=== PATIENT | female | born 1980 | race Caucasian/White ===

== ENCOUNTER 2016-11-18 19:47 | Emergency (ER) | payer OTHER ==
[2016-11-18 20:02] VITALS: TEMP 97.8; BMI 27.0
--- NOTE | 2016-11-18 20:04 | PDOC ---
Rapid Medical Evaluation Chief Complaint: Head/Neck problem Time Seen by Provider: 11/18/16 19:59 Medical Evaluation: Allergies Allergy/AdvReac Type Severity Reaction Status Date / Time No Known Allergies Allergy Verified 11/18/16 19:58 11/18/16 20:01 RME Note: I have performed a brief, in-person evaluation of this patient . This patient presents with CC:Left sided Headache x 4 days with arm left numbness Pertinent PE findings are: 163/106; equal leaf size picker strength I have ordered: labs, EKG The patient will proceed to ED for further evaluation.
--- NOTE | 2016-11-18 20:39 | PDOC ---
History of Present Illness - General History Source: Patient Exam Limitations: No Limitations - History of Present Illness Initial Comments: 11/18/16 20:48 Patient is a 36 year old female a significant past medical history of asthma who presents to the ED with headache since friday. Patient notes that she initially developed a headache on friday and progressively developed neck pain and numbness to the left arm. She notes that she took nothing for the headache. She denies any control or devices. She denies fever, chills, cp, SOB, nausea, vomiting, diarrhea, or constipation. Denies any recent travel or sick contact. Denies any smoking, alcohol use or drug use. <Emily Bourgeois - Last Filed: 11/18/16 20:56> - General History Source: Patient <Misael Mckinney - Last Filed: 11/18/16 22:24> - General Chief Complaint: CVA/TIA Stated Complaint: HEADACHE/LT AR NUMB/NECK PAIN Time Seen by Provider: 11/18/16 19:59 Past History <Emily Bourgeois - Last Filed: 11/18/16 20:56> - Past Medical History Other medical history: denies - Immunization History Immunization Up to Date: Yes - Psycho/Social/Smoking Cessation Hx Suicidal Ideation: No Smoking History: Never smoked Information on smoking cessation initiated: No Hx Alcohol Use: No Drug/Substance Use Hx: No Substance Use Type: None <Misael Mckinney - Last Filed: 11/18/16 22:24> - Past Medical History Allergies/Adverse Reactions: Allergies Allergy/AdvReac Type Severity Reaction Status Date / Time No Known Allergies Allergy Verified 11/18/16 19:58 Home Medications: Ambulatory Orders Amox-Tr/K Cl [Augmentin 875Mg Tablet] 1 tab PO BID #20 tablet 11/18/16 Review of Systems - Review of Systems Able to Perform ROS?: Yes Comments:: 11/18/16 20:49 CONSTITUTIONAL: Absent: fever, chills, diaphoresis, generalized weakness, malaise, loss of appetite HEENT: Absent: rhinorrhea, nasal congestion, throat pain, throat swelling, difficulty swallowing, mouth swelling, ear pain, eye pain, visual Changes CARDIOVASCULAR: Absent: chest pain, syncope, palpitations, irregular heart rate, lightheadedness , peripheral edema RESPIRATORY: Absent: cough, shortness of breath, dyspnea with exertion, orthopnea, wheezing, stridor, hemoptysis GASTROINTESTINAL: Absent: abdominal pain, abdominal distension, nausea, vomiting, diarrhea, constipation, melena, hematochezia GENITOURINARY: Absent: dysuria, frequency, urgency, hesitancy, hematuria, flank pain, genital pain MUSCULOSKELETAL: Present: neck pain, left arm numbness Absent: myalgia, arthralgia, joint swelling SKIN: Absent: rash, itching, pallor HEMATOLOGIC/IMMUNOLOGIC: Absent: easy bleeding, easy bruising, lymphadenopathy, frequent infections ENDOCRINE: Absent: unexplained weight gain, unexplained weight loss, heat intolerance, cold intolerance NEUROLOGIC: Present: headache Absent: focal weakness or paresthesias, dizziness, unsteady gait, seizure, mental status changes, bladder or bowel incontinence PSYCHIATRIC: Absent: anxiety, depression, suicidal or homicidal ideation, hallucinations. <Emily Bourgeois - Last Filed: 11/18/16 20:56> *Physical Exam - Vital Signs Last Vital Signs Temp Pulse Resp BP Pulse Ox 97.8 F 95 H 20 163/106 100 11/18/16 19:59 11/18/16 19:59 11/18/16 19:59 11/18/16 19:59 11/18/16 19:59 - Physical Exam Comments: 11/18/16 20:49 GENERAL: Well developed, well nourished. Awake and alert. In no acute distress. HEENT: Normocephalic, atraumatic. PERRLA, EOMI. No conjunctival pallor. Sclerae are non -icteric. Moist mucous membranes. Oropharynx is clear. NECK: Supple. Full ROM. No JVD. Carotid pulses 2+ and symmetric, without bruits. No thyromegaly. No lymphadenopathy. CARDIOVASCULAR: Regular rate and rhythm. No murmurs, rubs, or gallops. Distal pulses are 2+ and symmetric. PULMONARY: +bilateral wheezes, decreased breath sounds. No evidence of respiratory distress. Lungs clear to auscultation bilaterally. No rales or rhonchi. ABDOMINAL: Soft. Non-tender. Non-distended. No rebound or guarding. No organomegaly. Normoactive bowel sounds. MUSCULOSKELETAL Normal range of motion at all joints. No bony deformities or tenderness. No CVA tenderness. EXTREMITIES: No cyanosis. No clubbing. No edema. No calf tenderness. SKIN: Warm and dry. Normal capillary refill. No rashes. No jaundice. NEUROLOGICAL: +5/5 motor strength bilaterally. Alert, awake, appropriate. Cranial nerves 2-12 intact. No deficits to light touch and temperature in face, upper extremities and lower extremities. No motor deficits in the in face, upper extremities and lower extremities. Normoreflexic in the upper and lower extremities. Normal speech. Toes are downgoing bilaterally. PSYCHIATRIC: Cooperative. Good eye contact. Appropriate mood and affect. <Emily Bourgeois - Last Filed: 11/18/16 20:56> - Vital Signs Last Vital Signs Temp Pulse Resp BP Pulse Ox 97.8 F 95 H 20 163/106 100 11/18/16 19:59 11/18/16 19:59 11/18/16 19:59 11/18/16 19:59 11/18/16 19:59 <Misael Mckinney - Last Filed: 11/18/16 22:24> Heart Score/ECG Review #1 11/18/16 20:[address] Mckinney. Impression: Normal sinus rhythm anteroseptal infarct vent rate 92 bpm <Emily Bourgeois - Last Filed: 11/18/16 20:56> ED Treatment Course - LABORATORY CBC & Chemistry Diagram: 11/18/16 20:27 <Emily Bourgeois - Last Filed: 11/18/16 20:56> - LABORATORY CBC & Chemistry Diagram: 11/18/16 20:27 11/18/16 20:27 <Misael Mckinney - Last Filed: 11/18/16 22:24> Medical Decision Making - Medical Decision Making 11/18/16 22:18 Dr. Mckinney: The scribe's documentation has been prepared under my direction and personally reviewed by me in its entirery. I confirm that the note above accurately reflects all work, treatment, procedures, and medical decision making performed by me. 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 Pt will be discharge and follow up with neurology and neurosurgery for consultations. Rx Augmentin 875mg po for sinusitis <Misael Mckinney - Last Filed: 11/18/16 22:24> *DC/Admit/Observation/Transfer - Attestations Scribe Attestion: 11/18/16 20:50 Documentation prepared by ERIN Sidhu, acting as medical claims assistant for Misael Mckinney DO. <Emily Bourgeois - Last Filed: 11/18/16 20:56> - Discharge Dispostion Admit: No <Misael Mckinney - Last Filed: 11/18/16 22:24> Diagnosis at time of Disposition: Hemangioma of bone Sinusitis Qualifiers: Sinusitis location: other Chronicity: unspecified Qualified Code(s): J32.9 - Chronic sinusitis, unspecified - Discharge Dispostion Disposition: HOME Condition at time of disposition: Stable - Prescriptions Prescriptions: Amox-Tr/K Cl [Augmentin 875Mg Tablet] 1 tab PO BID #20 tablet - Referrals Referrals: King Delgado MD [Staff Physician] - Issa Vasques MD [Staff Physician] - - Patient Instructions Printed Discharge Instructions: DI for Sinusitis, Hemangioma Additional Instructions: Please follow up with your primary care doctor and the doctors you have been referred to here in the ER. Take medication as directed. Return if any problems
[2016-11-18] MEDS ORDERED: ACETAMINOPHEN 325 MG TABLET (FP) PO ONE (20:46)
[2016-11-18] MEDS ORDERED: ACETAMINOPHEN 325 MG TABLET (FP) ONE (20:53)
[2016-11-18 21:01] LABS: ALBUMIN 3.7 g/dl (3.4-5.0); ANION GAP 9 (8-16); CALCIUM 8.7 mg/dL (8.5-10.1); CO2 26 mmol/L (21-32); CREATININE 0.6 mg/dL (0.55-1.02); GLUCOSE,RANDOM 91 mg/dL (74-106); SGOT/AST 10 U/L (15-37); SGPT/ALT 16 U/L (12-78)
[2016-11-18 21:03] LABS: ALK PHOS 63 U/L (45-117); BILIRUBIN,TOTAL 0.3 mg/dL (0.2-1.0); TOT PROT 7.6 g/dl (6.4-8.2)
[2016-11-18 21:33] LABS: BASOPHIL 0.9 % (0-2.0); EOSINOPHIL 13.7 % (0-4.5); MCH 27.3 pg (25.7-33.7); MCHC 33.2 g/dl (32.0-36.0); MEAN CELL VOLUME 82.2 fl (80-96); NEUTROPHILS 43.7 % (42.8-82.8); PLATELET COUNT 279 K/MM3 (134-434); RDW 14.4 % (11.6-15.6); WHITE BLOOD COUNT 9.7 K/mm3 (4.0-10.0)
[2016-11-18] MEDS ORDERED: AMOX TR/POT CLAV 875MG/125MG TABLETS (FP) PO ONE (22:16)
[2016-11-18] MEDS ORDERED: AMOX TR/POT CLAV 875MG/125MG TABLETS (FP) ONE (22:22)
[2016-11-18 22:30] VITALS: BP 158/89; PULSE 88
--- NOTE | 2016-11-19 10:58 | EKG ---
Test Reason : Blood Pressure : / mmHG Vent. Rate : 092 BPM Atrial Rate : 092 BPM P-R Int : 190 ms QRS Dur : 078 ms QT Int : 346 ms P-R-T Axes : 029 020 031 degrees QTc Int : 427 ms NORMAL SINUS RHYTHM ANTEROSEPTAL INFARCT , AGE UNDETERMINED ABNORMAL ECG NO PREVIOUS ECGS AVAILABLE Confirmed by ANNE BERNARD, SHAVON ([id number]) on 11/19/2016 10:58:03 AM Referred By: Confirmed By:SHAVON RODRÍGUEZ MD
== END 2016-11-18 22:30 | disposition home or self-care (01) ==
LOC: JER 19:47
DX: J32.9 Chronic sinusitis, unspecified (principal); D18.09 Hemangioma of other sites
CPT/HCPCS: 36415; 70450-TC; 72125-TC; 80053; 84703; 85025; 93005; 93010; 99283-25

== ENCOUNTER 2018-07-22 20:30 | Inpatient (IN) | payer OTHER ==
[2018-07-22 22:01] LABS: BASO % 0.4 % (0-2.0); EOS % 2.4 % (0-4.5); HEMATOCRIT 35.2 % (32.4-45.2); HEMOGLOBIN 11.4 GM/dL (10.7-15.3); LYMPH % 14.1 % (8-40); MCH 26.1 pg (25.7-33.7); MCHC 32.5 g/dl (32.0-36.0); MEAN CELL VOLUME 80.5 fl (80-96); MEAN PLT VOLUME 9.2 fl (7.5-11.1); NEUT % 76.1 % (42.8-82.8); PLATELET COUNT 224 K/MM3 (134-434); RBC 4.38 M/mm3 (3.60-5.2); RDW 15.5 % (11.6-15.6); WHITE BLOOD COUNT 15.3 K/mm3 (4.0-10.0)
[2018-07-22 22:02] LABS: RETICULOCYTES 1.66 % (0.5-1.5)
[2018-07-22 22:17] LABS: INR 0.92 (0.83-1.09); PROTHROMBIN TIME (PATIENT) 10.8 SEC (9.7-13.0)
[2018-07-22 22:20] LABS: ACTIVATED PTT 20.7 SECONDS (25.2-36.5)
[2018-07-22 22:24] LABS: ANION GAP 13 MMOL/L (8-16); BLOOD UREA NITROGEN 10 mg/dL (7-18); CALCIUM 8.8 mg/dL (8.5-10.1); CHLORIDE 104 mmol/L (98-107); CO2 20 mmol/L (21-32); CREATININE 0.5 mg/dL (0.55-1.3); GLUCOSE,RANDOM 77 mg/dL (74-106); POTASSIUM 4.3 mmol/L (3.5-5.1); SODIUM 138 mmol/L (136-145); URIC ACID 3.4 mg/dL (2.6-7.2); URINE APPEARANCE CLEAR; URINE BILIRUBIN NEGATIVE (<2.0 mg/dL); URINE COLOR LTYELLOW; URINE GLUCOSE (UA) NEGATIVE (NEGATIVE); URINE KETONE 1+ (NEGATIVE); URINE LEUK ESTERASE 3+ (NEGATIVE); URINE NITRITE NEGATIVE (NEGATIVE); URINE PROTEIN NEGATIVE (NEGATIVE); URINE UROBILINOGEN NEGATIVE mg/dL (0.2-1.0)
[2018-07-22] MEDS ORDERED: BUTORPHANOL TARTRATE 1 MG/ML VIAL IVPB ONE (22:24)
[2018-07-22] MEDS ORDERED: PROMETHAZINE HCL 25 MG/1 ML VIAL IVPUSH ONE (22:24)
[2018-07-22 22:25] LABS: GAMMA GLUTAMYL TRANSPEPTIDASE 11 U/L (5-85); SGOT/AST 7 U/L (15-37); SGPT/ALT 12 U/L (13-61)
[2018-07-22 22:27] LABS: EPI CELLS RARE /HPF (FEW); URINE BACTERIA RARE /hpf (NONE SEEN); URINE HYALINE CAST 1 /lpf; URINE MUCUS FEW
[2018-07-22] MEDS: ELECTROLYTE-148 SOLN 1,000 ML IV SCH (22:30)
[2018-07-22 23:49] VITALS: BMI 34.4
[2018-07-23] MEDS ORDERED: OXYTOCIN 30 UNITS in 0.9% NS 30 UNIT/500 ML INFUS.BAG IVPB SCH (03:00)
--- NOTE | 2018-07-23 03:16 | HP ---
Past Medical History - Primary Care Physician PCP:: Arabella Pride - Admission Chief Complaint: here for elevated BP and labor induction History of Present Illness: 38 y/o female with SIUP at 38 weeks admitted overnight for elevated BPs in office and possible IOL. Upon admission pt was found to be erlin on her own. Pt was 3-4 cm dilated upon admission and BPs were in mild range. Pt had BERNARD earlier on 07/22/18 but denied BERNARD/RUQ pain or blurry vision upon admission. complicated by GDMA1 and AMA. Pt was 3cm dilated in office 07/22/18. History Source: Patient, Medical Record Limitations to Obtaining History: No Limitations - Past Medical History Cardiovascular: Yes: HTN (gestational HTN - pt denies prior HTN) Pulmonary: No: Asthma, COPD Gastrointestinal: No: Ascites, GERD Reproductive: No: PID ...: 4 ...Para: 3 ...Term: 3 ...: 0 ...Spon : 0 ...Induced : 0 ...Multiple Gestation: 0 ...LMP: 10/30/17 ... Weeks Gestation by Dates: 37.6 ...EDC by Dates: 08/06/18 ...EDC by Sono: 08/04/18 Heme/Onc: No: Anemia Infectious Disease: No: HIV, MRSA, STD's Psych: No: Anxiety, Bipolar, Depression - Past Surgical History Hx Myomectomy: No Hx Transabdominal Cerclage: No Additional Surgical History: abdominoplasty - Smoking History Smoking history: Never smoked Have you smoked in the past 12 months: No - Alcohol/Substance Use Hx Alcohol Use: No History of Substance Use: reports: None - Social History Usual Living Arrangement: Yes: With Spouse ADL: Independent History of Recent Travel: No Home Medications - Allergies Allergies/Adverse Reactions: Allergies Allergy/AdvReac Type Severity Reaction Status Date / Time No Known Allergies Allergy Verified 07/23/18 07:15 - Home Medications Home Medications: Ambulatory Orders Vit Calc,Iron,Folic [ Vitamins] 1 each PO DAILY 07/23/18 Review of Systems - Review of Systems Constitutional: reports: No Symptoms Eyes: reports: No Symptoms HENT: reports: No Symptoms Neck: reports: No Symptoms Cardiovascular: reports: No Symptoms Respiratory: reports: No Symptoms Gastrointestinal: reports: No Symptoms Genitourinary: reports: No Symptoms Breasts: reports: No Symptoms Reported Musculoskeletal: reports: No Symptoms Integumentary: reports: No Symptoms Neurological: reports: No Symptoms Endocrine: reports: No Symptoms Hematology/Lymphatic: reports: No Symptoms Psychiatric: reports: No Symptoms Physical Exam - Maternity Vital Signs: Vital Signs Temperature 98.6 F 07/23/18 02:00 Pulse Rate 93 H 07/23/18 03:00 Respiratory Rate 20 07/23/18 03:00 Blood Pressure 130/68 07/23/18 03:00 O2 Sat by Pulse Oximetry (%) Constitutional: Yes: Well Nourished, No Distress, Calm Eyes: Yes: Conjunctiva Clear, EOM Intact HENT: Yes: Atraumatic, Normocephalic Neck: Yes: Supple, Trachea Midline Cardiovascular: Yes: Regular Rate and Rhythm Lungs: Clear to auscultation Breast(s): Yes: WNL - Abdominal Exam/OB Fundal Height: 38 Number of Fetuses: Single Presentation: Vertex Contractions: Yes Regularity: Regular Intensity: Mild/Mod Monitor Mode: External Category: I Accelerations: Uniform Decelerations: None - Vaginal Exam/OB Dilatation (cm): 6cm Amniotic Membrane Status: Intact (exam per nursing staff overnight) Presentation: Vertex/Position Station: -2 - Physical Exam Psychiatric: Yes: Alert, Oriented - Labs Lab Results: CBC, BMP 07/22/18 21:40 07/22/18 21:40 Problem List - Problems (1) Gestational hypertension affecting fourth Code(s): O13.9 - GESTATIONAL HTN W/O SIGNIFICANT PROTEINURIA, UNSP TRIMESTER (2) Advanced maternal age (AMA) in Code(s): MSS5033 - (3) Gestational diabetes mellitus (GDM) affecting fourth Code(s): O24.419 - GESTATIONAL DIABETES MELLITUS IN , UNSP CONTROL Assessment/Plan 38 y/o with SIUP at 38 weeks, in early labor, gHTN and A1GDM FHTS cat 1 expectant management for now BPs in mild range, pt asymtpomatic, continue to monitor, if has symptoms or if BPs become in severe range will plan for magnesium and antihypertensives
[2018-07-23] MEDS ORDERED: BUTORPHANOL TARTRATE 1 MG/ML VIAL ONE ×2 (03:19)
[2018-07-23] MEDS ORDERED: PROMETHAZINE HCL 25 MG/1 ML VIAL ONE (03:20)
[2018-07-23] MEDS ORDERED: FENTANYL/BUPIVACAINE/NS/PF - PCEA - 50 ML DISP.SYRIN EP ONE (08:52)
--- NOTE | 2018-07-23 08:57 | PN ---
Ante-Partal Exam - Subjective Subjective: Pt comfortable, not feeling contractions. Contractions now sporadic/ irregular. Vital Signs: Vital Signs Temperature 98.4 F 07/23/18 06:00 Pulse Rate 81 07/23/18 08:00 Respiratory Rate 20 07/23/18 08:00 Blood Pressure 132/78 07/23/18 08:00 O2 Sat by Pulse Oximetry (%) Bleeding: No Headache: No Visual changes: No Right upper quadrant pain: No Pain (scale 1-10): 0 - Contractions Contractions: Yes Regularity: Irregular Intensity: Unaware Monitor Mode: External - Exam during Labor Heart Rate: 145 Category: I Monitor Accelerations: Present Monitor Decelerations: None Exam: Vaginal Dilatation (cm): 5 Effacement (%): 50 Amniotic Membrane Status: Ruptured (AROM for clear fluid on this exam) Amniotic Fluid: Clear Station: -3 - Assessment/Plan Assessment/Plan: 38 y/o with GHTN, GDMA1 and in early labor, now arrested, for augmentation FHTS cat 1 will start pitocin pt still asymptomatic from HTN standpoint, if begins to have symptoms or BPs in severe range will start magnesium GBS negative anticipate
[2018-07-23] MEDS ORDERED: OXYTOCIN 30 UNITS in 0.9% NS 30 UNIT/500 ML INFUS.BAG IVPB ONE (09:00)
[2018-07-23] MEDS: ELECTROLYTE-148 SOLN 1,000 ML IV SCH (09:05)
[2018-07-23] MEDS ORDERED: NALOXONE HCL 0.4 MG/ML VIAL IVPUSH PRN (10:31)
[2018-07-23] MEDS ORDERED: FENTANYL/BUPIVACAINE/NS/PF - PCEA - 50 ML DISP.SYRIN EP SCH (10:45)
[2018-07-23] MEDS ORDERED: OXYTOCIN 20 UNITS in 0.9% NS 20 UNIT/1,000 ML INFUS.BAG IV ONE (12:06)
[2018-07-23] MEDS ORDERED: BENZOCAINE 20% 57 GM BOTTLE TP PRN (12:32)
[2018-07-23] MEDS ORDERED: BENZOCAINE 28 GM HEMORRHOIDAL OINTMENT TP PRN (12:32)
[2018-07-23] MEDS ORDERED: WITCH HAZEL 50% (TUCKS) 40 PAD/JAR PAD TP PRN (12:32)
[2018-07-23] MEDS ORDERED: METHYLERGONOVINE MALEATE 0.2 MG/1 ML AMP IM PRN (12:32)
[2018-07-23] MEDS ORDERED: BISACODYL 10 MG SUPP.RECT RC PRN (12:32)
[2018-07-23] MEDS ORDERED: TUBERCULIN PPD 5 TU/0.1ML SYRINGE (IN PATIENT USE ONLY) ID ONE (12:33)
[2018-07-23] MEDS ORDERED: OXYTOCIN 20 UNITS in 0.9% NS 20 UNIT/1,000 ML INFUS.BAG IV SCH (12:45)
--- NOTE | 2018-07-23 14:35 | PN ---
Delivery - Delivery Vaginal Delivery: No Problems Type of Anesthesia: Epidural Episiotomy/Laceration: Vaginal Extension/lac, 2nd degree EBL (cc): 300 Delivery, Single - Stages of Labor Date 1st Stage Initiatied: 07/22/18 Time 1st Stage Initiated: 20:00 Date 2nd Stage Initiated: 07/23/18 Time 2nd Stage Initiated: 11:50 Date of Delivery: 07/23/18 Time of Delivery: 12:10 Time Placenta Delivered: 12:17 Placenta: Yes: Spontaneous - Condition of Infant Kitchen Lead/Inside Account Executive Present: No Infant Gender: Female Weight: 7 lb 13 oz Position: Left, OA Total Hours ROM (Hrs/Mins): 3hrs/27mins - 1 Minute Total Score: 9 5 Minutes Total Score: 9 - [place] Feeding Plan Initial Plan: Elected not to breastfeed exclusively throughout hospitalization Remarks - Remarks Remarks: Uncomplicated of baby girl from ANGELA Position anterior and posterior shoulder delivered with ease along with remainder of cord clamped and cut mouth and nose bulb suctioned placenta delivered with 3VC and in tact 2nd degree repaired with 2-0 vicryl sponge and needle count correct mom and baby stable
[2018-07-23] MEDS: FERROUS SO4 325 MG TABLET (FP) PO SCH (17:04)
[2018-07-23] MEDS: ACETAMINOPHEN 325 MG TABLET (FP) PO PRN (17:04)
[2018-07-23] MEDS: IBUPROFEN 600 MG TABLET (FP) PO PRN (17:04)
[2018-07-24] MEDS: IBUPROFEN 600 MG TABLET (FP) PO PRN (04:32)
[2018-07-24] MEDS: ACETAMINOPHEN 325 MG TABLET (FP) PO PRN (04:33)
[2018-07-24] MEDS ORDERED: TUBERCULIN PPD 5 TU/0.1ML SYRINGE (IN PATIENT USE ONLY) ID ONE (06:30)
[2018-07-24 07:51] LABS: BASO % 0.7 % (0-2.0); EOS % 2.7 % (0-4.5); LYMPH % 15.1 % (8-40); MCH 25.5 pg (25.7-33.7); MEAN CELL VOLUME 79.7 fl (80-96); MEAN PLT VOLUME 9.2 fl (7.5-11.1); MONO % 7.7 % (3.8-10.2); NEUT % 73.8 % (42.8-82.8); PLATELET COUNT 198 K/MM3 (134-434); RBC 3.51 M/mm3 (3.60-5.2); RDW 15.9 % (11.6-15.6); WHITE BLOOD COUNT 15.8 K/mm3 (4.0-10.0)
[2018-07-24] MEDS: FERROUS SO4 325 MG TABLET (FP) PO SCH ×3 (10:13→18:04)
[2018-07-24] MEDS: PRENATAL VITAMINS W/ FOLIC ACID TABLET (FP) PO SCH (10:13)
[2018-07-24] MEDS ORDERED: DIPHTH,PERTUSS(ACELL),TET 0.5 ML DISP.SYRIN IM ONE (14:00)
[2018-07-24] MEDS ORDERED: PNEUMOC 13-VAL CONJ-DIP CRM/PF 0.5 ML DISP.SYRIN IM ONE (14:00)
[2018-07-24] MEDS ORDERED: PNEUMOCOCCAL 23 VACCINE 0.5 ML VIAL IM ONE (14:00)
[2018-07-24] MEDS ORDERED: SENNOSIDES/DOCUSATE COMBO (SENNA PLUS) TABLET (UD) PO PRN (22:00)
[2018-07-24 22:16] VITALS: TEMP 98.1
[2018-07-25] MEDS: IBUPROFEN 600 MG TABLET (FP) PO PRN (08:21)
[2018-07-25] MEDS: ACETAMINOPHEN 325 MG TABLET (FP) PO PRN (08:22)
[2018-07-25] MEDS: FERROUS SO4 325 MG TABLET (FP) PO SCH ×2 (08:23→12:00)
--- NOTE | 2018-07-25 09:11 | DS ---
Physical Exam-VIDEO OPERATOR Vital Signs: Vital Signs Temperature 98.1 F 07/24/18 22:00 Pulse Rate 94 H 07/24/18 22:00 Respiratory Rate 20 07/24/18 22:00 Blood Pressure 128/73 07/24/18 22:00 O2 Sat by Pulse Oximetry (%) 98 07/23/18 12:30 Constitutional: Yes: Well Nourished, No Distress, Calm Eyes: Yes: Conjunctiva Clear, EOM Intact HENT: Yes: Atraumatic, Normocephalic Neck: Yes: Trachea Midline Cardiovascular: Yes: Regular Rate and Rhythm Respiratory: Yes: Regular Gastrointestinal: Yes: Normal Bowel Sounds Wound/Incision: Yes: Clean/Dry, Well Approximated Neurological: Yes: Alert, Oriented Psychiatric: Yes: Alert, Oriented Labs: CBC, BMP 07/24/18 07:30 07/22/18 21:40 Delivery - Delivery Vaginal Delivery: No Problems Type of Anesthesia: Epidural Episiotomy/Laceration: Vaginal Extension/lac, 2nd degree EBL (cc): 300 Delivery, Single - Stages of Labor Date 1st Stage Initiatied: 07/22/18 Time 1st Stage Initiated: 20:00 Date 2nd Stage Initiated: 07/23/18 Time 2nd Stage Initiated: 11:50 Date of Delivery: 07/23/18 Time of Delivery: 12:10 Time Placenta Delivered: 12:17 Placenta: Yes: Spontaneous - Condition of Professor Of Political Science/Tunnel Kiln Operator Present: No Gender: Female Weight: 7 lb 13 oz Position: Left, OA Total Hours ROM (Hrs/Mins): 3hrs/27mins - 1 Minute Total Score: 9 5 Minutes Total Score: 9 - [place] Feeding Plan Initial Plan: Elected not to breastfeed exclusively throughout hospitalization Discharge Summary Reason For Visit: INDUCTION OF LABOR Current Active Problems Advanced maternal age (AMA) in (Acute) Gestational diabetes mellitus (GDM) affecting fourth (Acute) Gestational hypertension affecting fourth (Acute) Hospital Course: Pt admitted in labor overnight 07/22 and underwent normal on 07/23. Had gestational HTN, BPs normal after delivery, pt asymptomatic. Stable and discharged home on post day 2. Condition: Good - Instructions Diet, Activity, Other Instructions: Physical activity Resume your normal everyday activity as tolerated no heavy lifting or exercise until seen by your surgeon. You may walk unlimited meño of and climb stairs. You may resume driving the car when you feel safe and comfortable behind the wheel. No sexual activity as instructed. Wound care If you have a bandage, leave it on, and keep dry for 48-72 hours. After that time discard the outer bandage. If they are tapes on the skin under the out of bandage leave them in place. They will peel off in the next 7 to 10 days. Do Not Peel them off. You may shower the day after surgery. If there are tapes present on the skin, you may shower over them. Diet There are no dietary restrictions. Eat healthy, high-fiber foods. Drink 6 to 8 glasses of liquid each day. This will assist in keeping your bowels are regular. Pain management You may take Tylenol or acetaminophen or Ibuprofen (for example, Motrin, Advil etc.) from my pain prescription medication is ordered should be taken as prescribed for moderate to severe pain. Call MD for any of the following: Severe pain not relieved by medication Fever of 101 or higher Excessive bleeding or drainage on dressing Inability to urinate Referrals: Arabella Pride DO [Staff Physician] - Disposition: HOME - Home Medications Comprehensive Discharge Medication List: Ambulatory Orders Vit Calc,Iron,Folic [ Vitamins] 1 each PO DAILY 07/23/18 Ibuprofen [Motrin -] 600 mg PO QID PRN #28 tablet 07/25/18
[2018-07-25 09:21] VITALS: BP 125/83; PULSE 106
[2018-07-25] MEDS: PRENATAL VITAMINS W/ FOLIC ACID TABLET (FP) PO SCH (10:10)
== END 2018-07-25 13:40 | disposition home or self-care (01) | DRG 560 ==
LOC: JLDR 20:30 → J3W 07-23 14:31
PROVIDERS: ADMIT Obstetrics & Gynecology; ATTEND Obstetrics & Gynecology
PROC: 10E0XZZ Delivery of Products of Conception, External Approach (ICD-10-PCS; principal; 2018-07-23)
PROC: 0KQM0ZZ Repair Perineum Muscle, Open Approach (ICD-10-PCS; 2018-07-23)
DX: O13.3 Gestational [pregnancy-induced] hypertension without significant proteinuria, third trimester (principal); O24.410 Gestational diabetes mellitus in pregnancy, diet controlled; O70.1 Second degree perineal laceration during delivery; Z3A.38 38 weeks gestation of pregnancy; Z37.0 Single live birth
CPT/HCPCS: 36415; 59409; 80048; 81003; 81015; 82977; 83010; 84450; 84460; 84550; 85025; 85032; 85044; 85610; 85730; 86593; 86850; 86900; 86901; 87389; 90686; 90715; 90732; G0008; G0009

== ENCOUNTER 2019-02-17 05:07 | Day surgery (SDC) | payer OTHER ==
[2019-02-16 19:30] VITALS: BMI 37.9
[2019-02-17] MEDS ORDERED: fentaNYL CITRATE 250 MCG/5 ML VIAL ONE (08:23)
[2019-02-17] MEDS ORDERED: DEXAMETHASONE SOD PHOSPHATE 4 MG/1 ML VIAL ONE (08:23)
[2019-02-17] MEDS ORDERED: PROPOFOL 20 ML ONE (08:23)
[2019-02-17] MEDS ORDERED: LIDOCAINE HCL/PF 2% SDV 5ML VIAL ONE (08:23)
[2019-02-17] MEDS ORDERED: ROCURONIUM BROMIDE 50 MG/5 ML VIAL ONE (08:23)
[2019-02-17] MEDS ORDERED: MIDAZOLAM HCL 2 MG/2 ML SINGLE DOSE VIAL ONE (08:23)
[2019-02-17] MEDS ORDERED: IBUPROFEN 800 MG/8 ML IJ IVPB PRN (08:52)
[2019-02-17] MEDS ORDERED: ACETAMINOPHEN 325 MG TABLET (FP) PO PRN (08:52)
--- NOTE | 2019-02-17 08:52 | HP ---
History & Physical Update - History History: No Change - Physical Physical: No Change - Assessment Assessment: No Change - Plan Plan: No Change (Agree with H&P from 02/15/19 - desires sterilization, for laparoscopic b/l salpingectomy)
[2019-02-17] MEDS ORDERED: LACTATED RINGERS SOLUTION 1,000 ML IV SCH (09:00)
[2019-02-17] MEDS ORDERED: ceFAZolin SODIUM 1 GM VIAL ONE (10:05)
[2019-02-17] MEDS ORDERED: ceFAZolin 2 GRAM PREMIX BAG IVPB ONE (10:07)
[2019-02-17] MEDS ORDERED: GLYCOPYRROLATE 0.2 MG/1 ML VIAL ONE (10:31)
[2019-02-17] MEDS ORDERED: NEOSTIGMINE METHYLSULFATE 0.5 MG/ML - 10 ML MDV ONE (10:31)
[2019-02-17] MEDS ORDERED: ACETAMINOPHEN INJECTION 100 ML IVPB ONE (10:53)
[2019-02-17] MEDS ORDERED: oxyCODONE HCL 5 MG TABLET PO PRN (10:56)
[2019-02-17] MEDS ORDERED: ONDANSETRON 4 MG/2 ML VIAL IVPUSH PRN (10:56)
[2019-02-17] MEDS ORDERED: ACETAMINOPHEN 1000 MG/100 ML VIAL (NON FORMULARY) IVPB ONE (10:57)
--- NOTE | 2019-02-17 11:00 | OP ---
Operative Note - Note: Operative Date: 02/17/19 Pre-Operative Diagnosis: multiparity, desires sterilization Operation: laparoscopic bilateral salpingectomy Findings: normal uterus normal bilateral fallopian tubes and ovaries Post-Operative Diagnosis: Same as Pre-op Surgeon: Arabella Pride Master Esthetician: Gurmeet Reese Anesthesiologist/TEMPERING KILN TENDER: Buck Marcus Anesthesia: General Specimens Removed: bilateral fallopian tubes Estimated Blood Loss (mls): 1 Operative Report Dictated: Yes
--- NOTE | 2019-02-17 12:06 | SURG ---
Surgery Bellhop Service Captain Note Bellhop Service Captain: Gurmeet Reese PA-C Date of Service: 02/17/19 Diagnosis: multiparity, desires sterilization Procedure: laparoscopic bilateral salpingectomy I was present for the entirety of the operative procedure. For further detail, please refer to operative report. Visit type - Case Type Case Type: Scheduled - Emergency Emergency Visit: No - New patient This patient is new to me today: Yes Date on this admission: 02/17/19 - Critical Care Critical Care patient: No
[2019-02-17] MEDS ORDERED: oxyCODONE HCL 5 MG TABLET ONE (12:23)
[2019-02-17 13:26] VITALS: TEMP 97.8
[2019-02-17 14:46] VITALS: BP 117/78; PULSE 68
--- NOTE | 2019-02-19 00:32 | OP ---
DATE OF OPERATION: 02/17/2019 PREOPERATIVE DIAGNOSIS: Multiparity and desires permanent sterilization. POSTOPERATIVE DIAGNOSIS: Multiparity and desires permanent sterilization. PROCEDURE: Laparoscopic bilateral salpingectomy. SURGEON: Arabella Pride MD FINAL APPLICATION REVIEWER: BRADLEY Miller ANESTHESIA: General, by Buck Marcus, REF-CRN ESTIMATED BLOOD LOSS: 1 mL. COMPLICATIONS: None. SPECIMENS REMOVED: Bilateral fallopian tubes. DISPOSITION: Stable to PACU. COUNTS: Sponge, needle, and instrument count correct. BRIEF HISTORY AND PROCEDURE: Patient is a 38-year-old, 4, para 4, female, who has been seen in the office in consultation for contraception, and she expressed desire for permanent sterilization. She was consented on her options, and she signed the consent form for a laparoscopic bilateral salpingectomy. The consents were reconfirmed upon admission on February 17, 2019. She was taken back to the operating room, given general anesthesia, and placed the dorsal lithotomy position. A Pérez catheter was placed under sterile conditions. She was prepped and draped in the usual sterile fashion and a hard timeout was performed. A 5-mm skin incision was created in the lower aspect of the umbilicus. A Veress needle was placed intraabdominally and the abdomen was insufflated with CO2 gas. A trocar was then inserted intraabdominally and the camera was placed. After confirmation of intraperitoneal placement, 2 bilateral 5-mm lower quadrant ports were placed under direct visualization. At this point, the left fallopian tube was identified, traced to its fimbriated end, dissected off its attachment to the ovary, mesosalpinx, and uterus, using LigaSure device. It was removed in its entirety from the left lower quadrant trocar under direct visualization. The same was repeated with the right fallopian tube until both fallopian tubes were completely detached and removed from the abdominal cavity. Inspection of the remainder of the abdomen revealed no other intraabdominal pathology. Bilateral surgical sites were noted to be hemostatic. Bilateral ovaries were noted to be normal. No pathology noted on the uterus. At this point, the abdomen was desufflated, the camera was removed, trocars were removed. The incisions were reapproximated using 4-0 Biosyn and skin glue. The patient was awoken from anesthesia. The Pérez catheter was removed. She was recovering in stable condition in the PACU at the time of this dictation. ARABELLA PRIDE DO /[id number]
--- NOTE | 2019-02-19 11:41 | PATH ---
Surgical Pathology Report Patient Name: OMAR FLORES Med. Rec. #: [id number] /Age/Gender: 1980 (Age: 38) / F Account: [id number] Location: AMBULATORY SURG Taken: 02/17/2019 Received: 02/17/2019 Reported: 02/19/2019 Physicians: Arabella Pride M.D. Specimen(s) Received BILATERAL FALLOPIAN TUBES Clinical History Multiparity-desires sterilization Final Diagnosis FALLOPIAN TUBES, BILATERAL, LAPAROSCOPIC SALPINGECTOMY: FALLOPIAN TUBE WITH PARATUBAL CYST (INCLUDING FULL LUMINAL PORTION AND FIMBRIATED END). UNREMARKABLE FALLOPIAN TUBE (INCLUDING FULL LUMINAL PORTION AND FIMBRIATED END). Electronically Signed Natasha Lee M.D. Gross Description Received in formalin labeled "bilateral fallopian tubes," are 2 undesignated, fimbriated fallopian tubes measuring 3.2 and 6.0 cm in length. The longer tube displays a 0.8 cm in greatest dimension paratubal cyst attached to the fimbria. The outer surfaces are stearns-pink and smooth. Sectioning reveals unremarkable lumen. Broacher sections are submitted in 4 cassettes as follows: 1-longer fallopian tube fimbria with paratubal cyst; 2-cross sections of longer fallopian tube; 3-shorter fallopian tube fimbria; 4-cross sections of shorter fallopian tube. /02/17/2019 [facility]02/17/2019
== END 2019-02-17 14:45 | disposition home or self-care (01) ==
LOC: JASUSAT 05:07
PROVIDERS: ATTEND Obstetrics & Gynecology
PROC: 0U574ZZ Destruction of Bilateral Fallopian Tubes, Percutaneous Endoscopic Approach (ICD-10-PCS; principal; 2019-02-17 09:00)
DX: Z30.2 Encounter for sterilization (principal)
CPT/HCPCS: 36415; 84703; 88302-TC; 94760; J0131

== ENCOUNTER 2019-06-17 21:52 | Emergency (ER) | payer OTHER ==
[2019-06-17 21:57] VITALS: BP 148/87; PULSE 91; TEMP 98.2; BMI 32.5
[2019-06-17 23:08] LABS: EPI CELLS 0.2 /HPF (0-5/HPF); HYALINE CASTS 1 /lpf (0-8); PH,URINE 8.5 (5.0-8.0); URINE APPEARANCE TURBID; URINE BACTERIA 5.3 /hpf (NEGATIVE); URINE BILIRUBIN NEGATIVE (NEGATIVE); URINE COLOR YELLOW; URINE GLUCOSE (UA) NEGATIVE (NEGATIVE); URINE KETONE NEGATIVE (NEGATIVE); URINE LEUK ESTERASE NEGATIVE (NEGATIVE); URINE NITRITE NEGATIVE (NEGATIVE); URINE PROTEIN NEGATIVE (NEGATIVE); URINE RBC 5 /hpf (0-4); URINE UROBILINOGEN 0.2 mg/dL (0.2-1.0); URINE WBC 1 /hpf (0-5)
--- NOTE | 2019-06-17 23:22 | PDOC ---
History of Present Illness - General Chief Complaint: Back Pain Stated Complaint: BACK PAIN Time Seen by Provider: 06/17/19 22:46 History Source: Patient Exam Limitations: No Limitations Past History - Past Medical History Allergies/Adverse Reactions: Allergies Allergy/AdvReac Type Severity Reaction Status Date / Time No Known Allergies Allergy Verified 02/17/19 08:32 Home Medications: Ambulatory Orders Oxycodone HCl/Acetaminophen [Percocet 5-325 mg Tablet -] 1 tab PO Q6H #15 tablet MDD 4 02/17/19 Anemia: Yes Asthma: Yes (last attack 5 mths ago) Cancer: No Cardiac Disorders: No CVA: No COPD: No CHF: No Dementia: No Diabetes: No GI Disorders: No Disorders: No HTN: Yes ( induced) Hypercholesterolemia: No Liver Disease: No Seizures: No Thyroid Disease: No - Surgical History Abdominal Surgery: No Appendectomy: No Cardiac Surgery: No Cholecystectomy: No Lung Surgery: No Neurologic Surgery: No Orthopedic Surgery: No - Immunization History Immunization Up to Date: Yes - Psycho Social/Smoking Cessation Hx Smoking History: Never smoked Have you smoked in the past 12 months: No Hx Alcohol Use: No Drug/Substance Use Hx: No Substance Use Type: None Hx Substance Use Treatment: No *Physical Exam - Vital Signs Last Vital Signs Temp Pulse Resp BP Pulse Ox 98.2 F 91 H 19 148/87 100 06/17/19 21:54 06/17/19 21:54 06/17/19 21:54 06/17/19 21:54 06/17/19 21:54 - Physical Exam General Appearance: No: Apparent Distress Respiratory/Chest: positive: Lungs Clear, Normal Breath Sounds. negative: Respiratory Distress Cardiovascular: positive: Regular Rhythm, Regular Rate, S1, S2. negative: Murmur Female Pelvic Exam: positive: normal external exam. negative: CMT, adnexal tenderness Gastrointestinal/Abdominal: positive: Normal Bowel Sounds, Soft. negative: Tender, Distended, Guarding, Rebound Musculoskeletal: negative: CVA Tenderness Neurologic: positive: Alert, Normal Mood/Affect ED Treatment Course - ADDITIONAL ORDERS Additional order review: Laboratory Results 06/17/19 06/17/19 21:45 21:45 Urine Color Yellow Urine Appearance Turbid Urine pH 8.5 H D Ur Specific [place] 1.019 Urine Protein Negative Urine Glucose (UA) Negative Urine Ketones Negative Urine Blood 1+ H Urine Nitrite Negative Urine Bilirubin Negative Urine Urobilinogen 0.2 Ur Leukocyte Esterase Negative Urine WBC (Auto) 1 Urine RBC (Auto) 5 Urine Casts (Auto) 1 U Epithel Cells (Auto) 0.2 Urine Bacteria (Auto) 5.3 Urine HCG, Qual Negative Medical Decision Making - Medical Decision Making 38 y/o F hx of asthma, B/L salpingectomy 02/17/19, tummy tuck 11 years ago presents with left lower back and LLQ abd pain x 4 days. Denies fever, chills, sob, cp, n/v/d, urinary complaints. Is eating and drinking normally. Has taken Motrin which helps with pain. Patient is currently on menstrual cycle. Possible ovarian cyst; not suspicious for diverticulitis, appendicitis, kidney stones, ovarian torsion, tubo-ovarian abscess, PID UA reviewed and unremarkable (blood likely as patient currently on menstrual cycle) Patient sent for TVUS 06/17/19 23:23 TVUS results: The uterus and endometrial stripe appear normal. *1.6 cm complex right ovarian cyst, usually a hemorrhagic follicle. Left ovary appears normal. Duplex Ultrasound: Appropriate arterial and/or venous flow are noted in both ovaries, making torsion unlikely at this time. No significant free pelvic fluid. Patient appears comfortable Advised f/u with her OTOLARYNGOLOGIST, Dr. Bigg mariee for dc 06/18/19 01:25 Discharge - Discharge Information Problems reviewed: Yes Clinical Impression/Diagnosis: LLQ abdominal pain Condition: Stable Disposition: HOME - Admission No - Additional Discharge Information Prescription Drug Monitoring Program (I-STOP) results: I-STOP not reviewed - Follow up/Referral Referrals: Jesika Roe MD [Primary Care Provider] - Arabella Pride DO [Staff Physician] - 2 Days - Patient Discharge Instructions Patient Printed Discharge Instructions: DI for Ovarian Cyst Additional Instructions: Thank you for choosing [facility]. It was a pleasure taking care of you. Your ultrasound showed 1.6 cm cyst on right ovary The left ovary was normal Please follow-up with your product line manager Return to the Emergency Department if your symptoms worsen or persist, you have fever, shortness of breath, chest pain, severe abdominal pain, vomiting or other concerning symptoms. - Post Discharge Activity
== END 2019-06-18 01:00 | disposition home or self-care (01) ==
LOC: JER 21:52
DX: N83.201 Unspecified ovarian cyst, right side (principal); R10.32 Left lower quadrant pain; J45.909 Unspecified asthma, uncomplicated; D64.9 Anemia, unspecified; I10 Essential (primary) hypertension; Z90.79 Acquired absence of other genital organ(s)
CPT/HCPCS: 76830-TC; 81003; 84703; 87086; 99282-25

== ENCOUNTER 2021-04-17 04:36 | Day surgery (SDC) | payer OTHER ==
[2021-04-12 12:26] VITALS: BMI 29.5
[2021-04-17] MEDS ORDERED: ACETAMINOPHEN INJECTION 200 ML IVPB ONE (06:58)
[2021-04-17] MEDS ORDERED: DEXMEDETOMIDINE HCL 200 MCG/2 ML IVPB ONE (06:59)
[2021-04-17] MEDS ORDERED: PROPOFOL 20 ML ONE ×2 (07:16)
[2021-04-17] MEDS ORDERED: ceFAZolin SODIUM 1 GM VIAL ONE (07:19)
[2021-04-17] MEDS ORDERED: LIDOCAINE HCL/PF 2% SDV 5ML VIAL ONE (07:19)
[2021-04-17] MEDS ORDERED: LIDOCAINE HCL 2% JELLY (5 ML/TUBE) ONE (07:19)
[2021-04-17] MEDS ORDERED: MIDAZOLAM HCL 2 MG/2 ML SINGLE DOSE VIAL ONE (07:20)
[2021-04-17] MEDS ORDERED: fentaNYL CITRATE 250 MCG/5 ML VIAL ONE (07:20)
[2021-04-17] MEDS ORDERED: KETAMINE HCL 200 MG/20 ML VIAL ONE (07:21)
[2021-04-17] MEDS ORDERED: TRIAMCINOLONE ACET 40MG/1ML VIAL ONE (07:23)
[2021-04-17] MEDS ORDERED: LIDOCAINE 1%/EPI 1:100000 (50 ML MULTI DOSE VIAL) ONE ×2 (07:24→09:02)
[2021-04-17] MEDS ORDERED: BACITRACIN 15 GM TUBE TOPICAL OINTMENT ONE (07:24)
[2021-04-17] MEDS ORDERED: COCAINE HCL 4% TOPICAL SOLUTION 4 ML BOTTLE TP ONE ×2 (07:51→08:28)
[2021-04-17] MEDS ORDERED: PROMETHAZINE HCL 25 MG/1 ML VIAL IVPUSH PRN (07:57)
[2021-04-17] MEDS ORDERED: ceFAZolin SODIUM 1 GM VIAL IVPB ONE (08:26)
[2021-04-17] MEDS ORDERED: LIDOCAINE 1%/EPI 1:100000 (20 ML MULTI DOSE VIAL) IJ ONE (08:29)
[2021-04-17] MEDS ORDERED: SUCCINYLCHOLINE CHLORIDE 200 MG/10 ML SYRINGE ONE (08:45)
[2021-04-17] MEDS ORDERED: PROMETHAZINE HCL 25 MG/1 ML VIAL ONE (09:43)
[2021-04-17] MEDS ORDERED: oxyCODONE HCL 5 MG TABLET PO PRN ×2 (11:10)
[2021-04-17] MEDS ORDERED: oxyCODONE HCL 5 MG TABLET ONE (11:13)
[2021-04-17] MEDS ORDERED: LACTATED RINGERS SOLUTION 1,000 ML IV SCH (11:15)
[2021-04-17 12:20] VITALS: TEMP 97.2
[2021-04-17 13:53] VITALS: BP 120/76; PULSE 81
== END 2021-04-17 13:45 | disposition home or self-care (01) ==
LOC: JASU-SURG 04:36
PROVIDERS: ATTEND Otolaryngology
PROC: 09BV8ZZ Excision of Left Ethmoid Sinus, Via Natural or Artificial Opening Endoscopic (ICD-10-PCS; 2021-04-17)
PROC: 09BU8ZZ Excision of Right Ethmoid Sinus, Via Natural or Artificial Opening Endoscopic (ICD-10-PCS; 2021-04-17)
PROC: 8E09XBZ Computer Assisted Procedure of Head and Neck Region (ICD-10-PCS; principal; 2021-04-17 08:00)
DX: J32.9 Chronic sinusitis, unspecified (principal); J33.9 Nasal polyp, unspecified; J34.3 Hypertrophy of nasal turbinates
CPT/HCPCS: 88304-TC; 94760; J0131

== ENCOUNTER 2022-07-18 20:14 | Emergency (ER) | payer OTHER ==
[2022-07-18 20:23] VITALS: BP 159/103; PULSE 72; RESP 18; TEMP 98.4; BMI 29.8
== END 2022-07-18 23:07 | disposition left against medical advice (07) ==
LOC: JER 20:14
DX: R10.11 Right upper quadrant pain (principal)
CPT/HCPCS: 99283-25

== ENCOUNTER 2023-02-28 21:28 | Emergency (ER) | payer OTHER ==
[2023-02-28 21:39] VITALS: BP 124/86; PULSE 98; RESP 18; TEMP 98.2; BMI 28.3
[2023-02-28 23:48] LABS: THROAT:GRP A STREP NOT DETECTED (NOTDETECTED)
== END 2023-02-28 23:55 | disposition home or self-care (01) ==
LOC: JER 21:28
DX: R05.9 Cough, unspecified (principal); R11.10 Vomiting, unspecified; J02.9 Acute pharyngitis, unspecified; B34.9 Viral infection, unspecified; U07.1 COVID-19
CPT/HCPCS: 0241U-QW; 87070; 87651; 99283-25